=== PATIENT | female | born 1940 | race Caucasian/White ===

== ENCOUNTER 2017-04-04 06:57 | Inpatient (IN) | payer OTHER ==
[2017-03-28 15:43] LABS: BASOPHILS 0.7 %; BASOPHILS ABSOLUTE 0.04 10/3/uL (0.0-0.16); EOSINOPHILS 4.4 %; EOSINOPHILS ABSOLUTE 0.27 10/3/uL (0.0-0.53); HEMOGLOBIN 12.5 g/dL (12.0-16.0); LYMPHOCYTES ABSOLUTE 1.28 10/3/uL (0.67-4.30); MANUAL DIFF NO %; MEAN CORPUS HGB CONC 34.7 g/dL (32.0-36.0); MEAN CORPUSCULAR HEMOGLOB 32.5 pg (26.0-34.0); MEAN CORPUSCULAR VOLUME 93.5 fL (80-100); MEAN PLATELET VOLUME 10.7 fL (9.2-13.0); MONOCYTES 7.2 %; MONOCYTES ABSOLUTE 0.44 10/3/uL (0.21-1.20); NEUTROPHILS 66.7 %; NEUTROPHILS ABSOLUTE 4.07 10/3/uL (2.02-8.40); PLATELET COUNT 215 10/3/uL (150-400); RED CELL COUNT 3.85 10/6/uL (4.0-5.6); WHITE BLOOD CELLS 6.1 10/3/uL (4.5-10.5)
[2017-03-28 15:50] LABS: CALCIUM, SERUM 9.4 MG/DL (8.5-10.4); CHLORIDE, SERUM 103 MMOL/L (96-112); CO2 (CARBON DIOXIDE) 30 MMOL/L (24-34); POTASSIUM, SERUM 4.9 MMOL/L (3.5-5.3); SODIUM, SERUM 138 MMOL/L (135-148)
[2017-03-28 15:55] LABS: BUN (BLOOD UREA NITROGEN) 43 MG/DL (6-23); CREATININE 3.74 MG/DL (0.55-1.02); GFR AFRICAN AMERICAN 13 ML/MIN (>=60); GFR NON AFRICAN AMERICAN 11 ML/MIN (>=60); GLUCOSE, SERUM 86 MG/DL (60-99)
[2017-03-28 16:07] LABS: ASCORBIC ACID (UR NOT ORDER) NEG (NEG); BILIRUBIN, URINE NEGATIVE (NEG); KETONE, URINE NEGATIVE (NEG); LEUKOCYTE ESTERASE(NOT OR NEG (NEG); WBC (NOT ORDERED) (RFLEX) 1 (0-5)
--- NOTE | ~2017-04-04 | HP ---
History And Physical [address] [address] NAME: DARREN VLEAZQUEZ : 42 STATUS : DIS IN PAT#: [id number] AGE: 76 ADM/REG DATE : 04/04/17 MR#: [id number] REPORT SERV DATE: 04/09/17 DICTATED BY: DENA ADAM DATE: 04/09/17 REPORT STATUS : Draft TRANSCRIBED BY: KAMRON DATE: 04/09/17 DATE OF ADMISSION: 04/04/2017 HISTORY: Ms. Velazquez underwent a TURBT on Friday, the . She had acute kidney insufficiency at that time and Nephrology was consulted. Over the weekend, she had a duplex scan of her renal arteries and was found to have no flow to her right kidney. She is currently off the floor for a right renal artery stent with Vascular Surgery. From the computer records, she is afebrile and her blood pressure was last 150/67 with a pulse of 64. She has been making about 2 L of urine a day. Her creatinine was down to 3.76 today from 4.49. Her white count was 6.8 with a hemoglobin of 10.9. IMPRESSION: 1. Bladder mass. 2. Left ureteral mass. 3. Right renal arterial blockage. 4. Acute kidney insufficiency. PLAN: 1. No acute urologic issues at this time. 2. Hopefully, we can get her catheter out and safely home once she is stable from a nephrology standpoint. ANU/KAMRON Dena Adam M.D. / [id number] CC: Tejal Phillips
--- NOTE | ~2017-04-04 | DS ---
Discharge Summary [address] [place]. [address] NAME: DARREN VELAZQUEZ : 42 STATUS : DIS IN PAT#: [id number] AGE: 77 ADM/REG DATE : 04/04/17 MR#: [id number] REPORT SERV DATE: 06/05/17 DICTATED BY: DENA ADAM DATE: 06/04/17 REPORT STATUS : Draft TRANSCRIBED BY: MODValentin DATE: 06/04/17 Data Collection from hospitalization DISCHARGE DIAGNOSES: 1. Bladder mass. 2. Left ureteral mass. 3. Elevated creatinine. 4. Hematuria. 5. Diagnosis of transitional cell carcinoma of the bladder. 6. 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 7. Hypertension. 8. Acute kidney insufficiency. 9. Tobacco use. CONSULTATIONS: 1. Kameron Pierce M.D. 2. Robbi Izquierdo M.D. PROCEDURES PERFORMED: 1. Cystoscopy bilateral retrograde pyelogram, transurethral resection of the bladder tumor of less than 2 cm and placement of a Ponce catheter on 04/04/2017. 2. Aortogram with right renal arteriogram, right renal artery stent on 04/07/2017. 3. Duplex renal arterial/venous study on 04/05/2017. 4. Carotid blood flow study on 04/05/2017. PATHOLOGY: Bladder tissue (TURP) - low-grade papillary urothelial carcinoma - noninvasive. MEDICATIONS: Norvasc 10 mg every morning, aspirin 325 mg daily, Lipitor 40 mg every evening, vitamin D3 1000 units daily, Plavix 75 mg daily, folic acid 1 mg daily, Lasix 40 mg daily, hydralazine 100 mg twice a day, Cozaar 50 mg every morning, Lopressor one and half tablets twice a day, Zofran 4 mg every six hours as needed, and Pyridium 100 mg three times a day. CONDITION AT DISCHARGE: Stable. DISPOSITION: The patient was discharged home on a low-sodium, low-cholesterol, cardiac diet with activities as instructed. She would follow up Dr. Robbi Izquierdo on 04/28/[address] Sachi Herrera on 04/28/2017. She would follow up with Dr. Dena Adam as instructed in four to six weeks following discharge. HOSPITAL COURSE: This is a 76-year-old female who presented for workup of hematuria and urinary tract infection. She was found to have a mass exiting the left ureteral orifice and surrounding her left ureteral orifice. Upper tract imaging showed known atrophic left kidney. She had no evidence of hydroureteronephrosis of either kidney. Since we scheduled this procedure, her creatinine had increased from her baseline of the high 1s up to 4.2 on the day of admission. She denied any symptoms. She said she was voiding without difficulty. Treatment options were discussed and it was elected to proceed with surgical intervention. She was admitted to the hospital at this time for further evaluation and treatment. Discharge Summary [facility] [address]. [address] NAME: DARREN VELAZQUEZ : 42 STATUS : DIS IN [facility]#: [id number] AGE: 77 ADM/REG DATE : 04/04/17 MR#: [id number] REPORT SERV DATE: 06/05/17 DICTATED BY: DENA ADAM DATE: 06/04/17 REPORT STATUS : Draft TRANSCRIBED BY: KAMRON DATE: 06/04/17 Upon admission, she was taken to the operating room where she underwent the above-mentioned procedure. She tolerated this well, and there were no complications. She was seen in consultation by Dr. Kameron Pierce. He had been asked for assistance with management of acute on chronic kidney failure. Creatinine level was 4.26. She had no signs of obstruction on the right per retrograde pyelogram. She has no history of nonsteroidal anti- inflammatory use and no IV contrast. It was suspected that her problem was primarily the MURIEL agent that was added to her regimen in the recent past. She was felt to have acute kidney injury. Her baseline creatinine is 1.5 to 1.7. Hydralazine was increased. Her ARB was stopped. She had been started on Cozaar. Hypertension is quite malignant. We were going to rule out renal artery stenosis on the remaining kidney. IV fluids were provided. The following day, the patient underwent duplex renal arterial/venous study and carotid blood flow study. She had some mild nausea. Diuretic challenge was being performed. She did have some shortness of breath. On 04/06/2017, she still had some shortness of breath. She was found to have no flow into the right kidney. The patient has renal artery stenosis. Her urine with morales colored. She had a progressive rise in her creatinine. It was now 4.49. She was seen by Dr. Robbi Izquierdo. The patient had worsening renal failure and a single kidney. She has renal artery stenosis. Based on this, it was felt that she would benefit from renal artery arteriogram and possible stent placement. This was discussed in detail with the patient and she agreed to proceed. On 04/07/2017, she was taken to the operating room by Dr. Robbi Izquierdo where she underwent the above-mentioned procedure. She tolerated this well, and there were no complications. Ponce catheter was removed. On 04/08/2017, she had no new complaints. Creatinine level was now 2.88. White count was 7.9. Her pathology report had shown low-grade transitional cell carcinoma, which was noninvasive. The nature of superficial bladder cancer was discussed. We also discussed with her that she had residual tumor in the left ureter that could not be reached with this resection. It was discussed with her that she would need further treatment of the tumor in the left ureter. We discussed the plan which had been to treat this with left nephroureterectomy since her left kidney was nonfunctioning, however, the need for right renal artery stent and Plavix had changed that plan. She would not be a good candidate for that surgery due to her need for Plavix at this time. She stated her understanding. She was told that once she was given time to heal from the TURBT that we may be able to safely pass a ureteral scope up her distal ureter and treat the remaining tumor with the laser. She said that she may be interested in pursuing this. Discharge planning was performed. On 04/09/2017, blood pressure was under very good control. She was voiding okay. Creatinine level was 2.05. She denied any gross hematuria. She was wanting to go home. Discharge instructions were given. Due to her improved and stable condition, she was discharged home with the above- stated instructions. Information collected by: Claudia oMore I submit the above information as my discharge summary. HONEY/KAMRON Dena Adam M.D. Discharge Summary [address] [address] NAME: DARREN VELAZQUEZ : 42 STATUS : DIS IN PAT#: [id number] AGE: 77 ADM/REG DATE : 04/04/17 MR#: [id number] REPORT SERV DATE: 06/05/17 DICTATED BY: DENA ADAM DATE: 06/04/17 REPORT STATUS : Draft TRANSCRIBED BY: MODL DATE: 06/04/17 / [id number] CC: Tejal Phillips M.D. Charles Scott Joels, M.D.
--- NOTE | ~2017-04-04 | OP ---
Record Of Operation [facility] [address] [place]. [address] NAME: DARREN VELAZQUEZ : 42 STATUS : ADM IN PAT#: [id number] AGE: 76 ADM/REG DATE : 04/04/17 MR#: [id number] REPORT SERV DATE: 04/08/17 DICTATED BY: ROBBI IZQUIERDO DATE: 04/07/17 REPORT STATUS : Draft TRANSCRIBED BY: MODL DATE: 04/07/17 DATE OF PROCEDURE: 04/07/2017 PREOPERATIVE DIAGNOSIS: Renal artery stenosis, single kidney, and renal failure. POSTOPERATIVE DIAGNOSIS: Renal artery stenosis, single kidney, and renal failure. PROCEDURE: 1. Aortogram with right renal arteriogram. 2. Right renal artery stent. SURGEON: Robbi Izquierdo M.D. ANESTHESIA: Local with sedation. COMPLICATIONS: None. ESTIMATED BLOOD LOSS: Minimal. CONTRAST: 8 mL. HISTORY: The patient is a 76-year-old female, with worsening renal failure, single kidney, and renal artery stenosis. Based on this, it was felt she would benefit from renal artery arteriogram and possible stent placement. This was discussed in detail with the patient. She expressed understanding and desired to proceed. DESCRIPTION OF PROCEDURE: The patient was taken to the operating room and placed in the supine position. She was given IV sedation without complication. Both groins were prepped and draped in sterile fashion. Ultrasound was used to identify the common femoral artery on the right. 1% lidocaine was infiltrated in the skin and subcutaneous tissues. Under ultrasound guidance, an 18-gauge needle was placed in the common femoral artery. Wire was passed into aorta, which was confirmed with fluoroscopy. The needle was removed. A 5- Sami sheath placed. UF catheter was passed over the wire into the aorta. Aortogram shows a patent aorta, patent celiac artery, and branches. The renal artery was not seen. Additional images were performed and eventually using an SHK catheter, the origin the right renal artery was seen, with stenosis at the renal artery origin, and patent renal artery beyond that area. Wire was placed. The sheath was exchanged for 6-Sami torque guide and with the help of a Kyree catheter, a Glidewire was used to access the right renal artery. Select arteriogram was performed, which shows a patent renal artery beyond the origin. The patient was given 4000 units of heparin intravenously. An 0.018 wire was placed. A 4 x 20 balloon was used to angioplasty the renal artery origin. The sheath was then able to be passed into the renal artery origin. A 6 x 16 balloon expandable iCAST covered stent was then placed at the renal origin and the stent pulled back, arteriogram showed this to be in good position, and the stent was deployed without difficulty. Post arteriogram shows a widely patent stent with prompt flow. This was felt to be an excellent result. The sheath was removed. The access was closed with StarClose device without difficulty. The patient Record Of [address] [address] NAME: DARREN VELAZQUEZ : 42 STATUS : ADM IN [facility]#: [id number] AGE: 76 ADM/REG DATE : 04/04/17 MR#: [id number] REPORT SERV DATE: 04/08/17 DICTATED BY: ROBBI IZQUIERDO DATE: 04/07/17 REPORT STATUS : Draft TRANSCRIBED BY: KAMRON DATE: 04/07/17 tolerated well and she was taken to the recovery room in stable condition. SCOTT/KAMRON Robbi Izquierdo M.D. / [id number] CC: Dena Adam M.D. [facility]
--- NOTE | ~2017-04-04 | CN ---
Consultation Report [facility] [address] [place]. [address] NAME: DARREN VELAZQUEZ : 42 STATUS : ADM IN PAT#: [id number] AGE: 76 ADM/REG DATE : 04/04/17 MR#: [id number] REPORT SERV DATE: 04/04/17 DICTATED BY: KAMERON ZHU DATE: 04/04/17 REPORT STATUS : Draft TRANSCRIBED BY: MODL DATE: 04/04/17 NEPHROLOGY CONSULTATION DATE OF CONSULTATION: HISTORY OF PRESENT ILLNESS: A 76-year-old white female, patient of Dr. Dena Adam, admitted for cystoscopy and resection of her left ureteral tumor. These have been done and has had some mitomycin infusion in her bladder postop and is being admitted to the floor now. I was consulted for assistance with management of acute on chronic kidney failure. She had been followed in my office by Dr. Sachi Herrera through November of this year, at which point she decided she was inconvenient by having to come to see him and requested that primary care doctor follow her only. Dr. Mccormick has followed her and has followed up on recommendations by Dr. Herrera for evaluation by Urology for hematuria and found the bladder tumor. She has significant history of hypertension, longstanding; trophic left kidney; hyperlipidemia; cataract surgery x2 in 2014; 2, para 2, abortus 0; and CKD stage 3, creatinine baseline 1.7, which has been stable for several years and the last time checked was 11/23/2016, at which point she was placed on Cozaar and her kidney function has increased, creatinine on 03/28 was 3.7, creatinine today was 4.26. She has no signs of obstruction on the right per a retrograde pyelogram by Dr. Adam in the OR. She has no history of nonsteroidal anti-inflammatory use, no IV contrast, and suspect her problem is primarily the ARB agent that was added to her regimen in the recent past on the patient with significant severe hypertensive nephrosclerosis. No biopsy done. FAMILY HISTORY: Positive for coronary artery disease, and atherosclerotic cardiovascular disease. SOCIAL HISTORY: Continues to smoke. . No alcohol. No drugs. ALLERGIES: TO NO KNOWN MEDICATIONS. HOME MEDICATIONS: Listed as amlodipine 10 mg daily; aspirin 325 daily; atorvastatin 40 mg a daily; vitamin D3, 1000 units daily; folic acid 1 mg tablet daily; furosemide 40 mg daily; hydralazine 100 mg twice a day; losartan 50 mg tab daily; and metoprolol tartrate 50 mg b.i.d. REVIEW OF SYSTEMS: No new medications, except for the losartan that was started in November. No nonsteroidals. Has been remarkably asymptomatic and was surprised when she was told she had kidney failure because she has had no new symptoms. No fever, chills, or dysuria. No shortness of breath. No significant more edema than usual. Has some chronic edema long-term. Denies hematuria as most of this has been microscopic. PHYSICAL EXAMINATION: VITAL SIGNS: Blood pressure 138/64, heart rate of 55, respirations 16, temperature 97 Consultation Report [id number] [facility] [place]. [address] NAME: DARREN VELAZQUEZ : 44 STATUS : ADM IN [facility]#: [id number] AGE: 76 ADM/REG DATE : 04/04/17 MR#: [id number] REPORT SERV DATE: 04/04/17 DICTATED BY: KAMERON ZHU DATE: 04/04/17 REPORT STATUS : Draft TRANSCRIBED BY: MODL DATE: 04/04/17 degrees, and 97% saturated on 1 L by nasal cannula. GENERAL: Alert and cooperative, in no acute distress. Took all the medications this morning. No new symptoms. HEENT: On bilateral nasal cannula. IV shows in her left hand capped. NECK: She has murmurs bilaterally, either carotid bruits or transmitted murmurs from the heart, suspect transmitted murmurs. We will get ultrasound of her carotids. CHEST: Clear. CARDIOVASCULAR: Grade 3/6 systolic ejection murmur, transmitted to the carotids. ABDOMEN: Soft and benign. Bowel sounds are present. Ponce in. EXTREMITIES: She has sequential compression devices on bilaterally, but no significant edema. NEUROLOGIC: Nonfocal. Oriented x3. Cooperative. LABORATORY DATA: Shows sodium 140, potassium 5.0, chloride 107, CO2 of 29 with a BUN of 45, creatinine 4.26, blood sugar 100 today. Creatinine was 3.74 on 03/28, prior to that was 1.7. White count was 6.1, hemoglobin 12, hematocrit 36, platelet count 212 on 03/28, none repeated today. Urinalysis was clear on 03/28. ASSESSMENT: 1. Acute kidney injury. Baseline creatinine 1.5 to 1.7 through November, at which point she was started on Cozaar. Creatinine is as above, currently 4.26. Suspect ARB is the main culprit, we will stop. Increase hydralazine to 100 mg t.i.d. Nonfunctional left kidney, hypertension poorly controlled, but no hydronephrosis in remaining functional right kidney. No nonsteroidal use or contrast use in the recent past. 2. Bladder cancer obstructing left kidney, trophic left kidney, and residual tumor left in left ureter is unable to resect. May well need a left nephrectomy in the future with complete ureter resection also. We will defer to Dr. Adam after pathology returns. 3. Hypertension, quite malignant. Rule out renal artery stenosis on remaining kidney. 4. Tobacco use disorder. 5. Hematuria. Recent resection of bladder cancer is the most likely cause. Dr. Adam following. 6. Anemia, was not anemic in November. PLAN: Stop the ARB. IV fluids. Follow with you. Thank you for consultation. YOMAIRA/KAMRON Kameron Zhu M.D. Consultation Report [address] [address] NAME: DARREN VELAZQUEZ : 42 STATUS : ADM IN [facility]#: [id number] AGE: 76 ADM/REG DATE : 04/04/17 MR#: [id number] REPORT SERV DATE: 04/04/17 DICTATED BY: KAMERON ZHU DATE: 04/04/17 REPORT STATUS : Draft TRANSCRIBED BY: MODL DATE: 04/04/17 / [id number] CC: Tejal Phillips Ralph Edward II
--- NOTE | ~2017-04-04 | HP ---
History And Physical [address] [facility] [place]. [address] NAME: DARREN VELAZQUEZ : 42 STATUS : DIS IN PAT#: [id number] AGE: 76 ADM/REG DATE : 04/04/17 MR#: [id number] REPORT SERV DATE: 04/09/17 DICTATED BY: DENA ADAM DATE: 04/09/17 REPORT STATUS : Draft TRANSCRIBED BY: KAMRON DATE: 04/09/17 DATE OF ADMISSION: 04/04/2017 HOSPITAL FOLLOWUP VISIT NOTE HISTORY: The patient is status post right renal artery stent yesterday evening. She is surprised at how much urine she has made today. PHYSICAL EXAMINATION: VITAL SIGNS: Afebrile. Blood pressure has been elevated. Currently, 161/68, pulse of 98, respirations 22. She has had 2337 mL in and 3375 mL out. GENERAL: She is in no acute distress. NEUROLOGIC: Alert and oriented x3. PSYCHIATRIC: Appropriate. GENITOURINARY: She has a large amount of yellow urine in her catheter bag. LABORATORY STUDIES: Her creatinine is 2.88 with a BUN of 40, potassium of 4, white count of 7.9. Pathology report has returned. This shows a low-grade transitional cell carcinoma, noninvasive. Dr. Caro has already reviewed this with her. I reviewed this with her as well. We discussed the nature of superficial bladder cancer. I also discussed with her that she has residual tumor in her left ureter that I could not reach with this resection. I discussed with her that she will need further treatment of the tumor in her left ureter. I did discuss with her that the plan had been to treat this with a left nephroureterectomy since her left kidney is nonfunctioning. However, the need for a right renal artery stent and Plavix has changed that plan. She would not be a good candidate for that surgery due to her need for Plavix at this time. She states understanding. I did tell her that once we give her time to heal from her TURBT, I may safely be able to pass a ureteroscope up her distal ureter and treat that remaining tumor with a laser. She states she may be interested in pursuing this. IMPRESSION: 1. Transitional cell carcinoma of the bladder, resected and treated with mitomycin. 2. Transitional cell carcinoma of the left ureter, residual tumor remains. PLAN: 1. Dr. Caro is working on her hypertension this evening. 2. We will discontinue her Ponce catheter. 3. Hopefully, she can go home tomorrow if stable and cleared by Nephrology. 4. We will discuss again the plan for potential ureteroscopy and treatment of her tumor with a laser tomorrow. ANU/KAMRON History And Physical [address] [address] NAME: DARREN VELAZQUEZ : 44 STATUS : DIS IN PAT#: [id number] AGE: 76 ADM/REG DATE : 04/04/17 MR#: [id number] REPORT SERV DATE: 04/09/17 DICTATED BY: DEAN ADAM DATE: 04/09/17 REPORT STATUS : Draft TRANSCRIBED BY: KAMRON DATE: 04/09/17 Dena Adam M.D. / [id number] CC: Tejal Phillips
--- NOTE | ~2017-04-04 | HP ---
History And Physical [address] [address] NAME: DARREN CORRALES : 44 STATUS : DIS IN PAT#: [id number] AGE: 76 ADM/REG DATE : 04/04/17 MR#: [id number] REPORT SERV DATE: 04/09/17 DICTATED BY: DENA ADAM DATE: 04/09/17 REPORT STATUS : Draft TRANSCRIBED BY: MODValentin DATE: 04/09/17 DATE OF ADMISSION: 04/04/2017 FOLLOWUP HOSPITAL NOTE HISTORY: The patient is voiding well without difficulty. Denies gross hematuria. She is ready to go home. PHYSICAL EXAMINATION: VITAL SIGNS: She is afebrile. Her blood pressure is 108/71 with a pulse of 95 and respirations of 16. She had 971 mL in yesterday and 2850 mL out. GENERAL: She is in no acute distress. NEUROLOGIC: Alert and oriented x3. PSYCHIATRIC: Appropriate. ABDOMEN: Benign. LABORATORY STUDIES: Creatinine is down to 2.05, BUN of 29, potassium of 3.7. White blood cell count of 7.9 with a hemoglobin of 11.2 and platelets of 146. IMPRESSION: 1. Transitional cell carcinoma of the bladder. 2. Transitional cell carcinoma of the left ureter. 3. Tight stenosis of the right renal artery. 4. Acute kidney insufficiency. 5. Hypertension. PLAN: 1. Dr. Caro believes that she is stable to go home today. I am in agreement. 2. He has written orders for discharge including plans for followup with Dr. Herrera as well as Dr. Izquierdo. Prescriptions are on the chart. 3. Ms. Corrales and I have discussed further treatment options for her left ureteral remaining tumor burden yesterday. We touched on this again today. The plan originally was for her to undergo a left nephroureterectomy to treat her remaining tumor. However, since that time, she has had to have stenting of her right renal artery and start on Plavix. This will not be a safe surgery for her until her Plavix can be safely held. For that reason, we will plan to give her four-to-six weeks to heal from her TURBT and return to the operating room for ureteroscopy. The plan will be cystoscopy, left retrograde pyelogram, left ureteroscopy, laser ablation of tumor, placement of left ureteral stent. Risks and benefits of this procedure have been explained in detail to the patient including, but not limited to, bleeding, infection, damage to adjacent structures, need for additional procedures, need for stent removal in the future, possible need for Ponce catheter placement. She has stated understanding and is willing to proceed. 4. My surgery center administrator will call her within the next week or two to plan a date and time for the above-stated procedure. 5. We will discharge her home today. History And Physical [id number] [facility] [address] [address]. [address] NAME: DARREN CORRALES : 44 STATUS : DIS IN PAT#: [id number] AGE: 76 ADM/REG DATE : 04/04/17 MR#: [id number] REPORT SERV DATE: 04/09/17 DICTATED BY: DENA ADAM DATE: 04/09/17 REPORT STATUS : Draft TRANSCRIBED BY: KAMRON DATE: 04/09/17 ANU/KAMRON Dena Adam M.D. / [id number] CC: Tejal Phillips
--- NOTE | ~2017-04-04 | OP ---
Record Of Operation [facility] [address] [place]. [address] NAME: DARREN VELAZQUEZ : 44 STATUS : ADM IN PAT#: [id number] AGE: 76 ADM/REG DATE : 04/04/17 MR#: [id number] REPORT SERV DATE: 04/04/17 DICTATED BY: DENA ADAM DATE: 04/04/17 REPORT STATUS : Draft TRANSCRIBED BY: MODL DATE: 04/04/17 DATE OF PROCEDURE: 04/04/2017 PREOPERATIVE DIAGNOSES: Bladder mass, left ureteral mass, elevated creatinine, and hematuria. POSTOPERATIVE DIAGNOSIS: Bladder mass, left ureteral mass, elevated creatinine, and hematuria. 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 ANESTHESIA: General. SPECIMENS: Bladder mass. ESTIMATED BLOOD LOSS: Less than 20 mL. DRAINS: A 16-Latvian Ponce catheter to bag drainage. COMPLICATIONS: None. CULTURES: None. DISPOSITION: Extubated to recovery room. HISTORY: A 76-year-old woman who presented to [facility] for workup of hematuria and UTIs. She was found to have a mass exiting her left ureteral orifice and surrounding her left ureteral orifice. Upper tract imaging showed a known atrophic left kidney. She had no evidence of hydroureteronephrosis. Since we have scheduled this procedure, her creatinine has increased from her baseline of the high 1s to 4.2 today. The patient denies any symptoms. She states she is voiding without difficulty. She presents today for the above-stated procedure. PROCEDURE IN DETAIL: After consent was obtained, the patient was taken to the operating room and placed on the operative table in a supine position. General anesthetic was induced. The patient was then placed in dorsal lithotomy position. Her perineum was prepped and draped in the usual sterile fashion. Examination under anesthesia reveals vaginal atrophy. A house painter film on the table shows no evidence of abnormal calcifications along the lines of the kidneys or ureters. Cystourethroscopy was performed with a 30 and 70-degree lens. Both ureteral orifices were seen. A tumor was seen exiting her left ureteral orifice. Her right ureteral orifice was seen effluxing concentrated urine. A right retrograde pyelogram was performed and this showed a normal caliber ureter and collecting system. Once the open- ended stent was removed, this quickly drained all of the contrast. We then switched over to the resectoscope. Her left ureteral orifice and mass were resected down as deep as we could go without perforating the bladder. There was still papillary mass seen exiting the ureter at that time. The Ellik was used to evacuate all of the tumor chips. A wire was then Record Of Operation [address] [address] NAME: DARREN VELAZQUEZ : 44 STATUS : ADM IN PAT#: [id number] AGE: 76 ADM/REG DATE : 04/04/17 MR#: [id number] REPORT SERV DATE: 04/04/17 DICTATED BY: DENA DAAM DATE: 04/04/17 REPORT STATUS : Draft TRANSCRIBED BY: KAMRON DATE: 04/04/17 passed up the ureter short ways and then the open-ended was passed over the wire. A retrograde pyelogram was then performed, which showed some bubbles in the mid ureter, but no masses were noted. Her ureter did appear to be of normal caliber without significant hydronephrosis. Once the open-ended was removed, she did have drainage of contrast, which was slightly bloody in nature. We switched back to the resectoscope and the resected area was then cauterized leaving the ureteral orifice uncauterized. This was seen to be effluxing a small amount of x-ray dye once we were finished. The right ureteral orifice was also effluxing urine once we were finished. There was no evidence of any active bleeding or retained tumor chips in the bladder. The bladder was left full. The scope and sheath were removed. A 16-Latvian Ponce catheter was passed into the bladder and 10 mL was placed in the balloon. This was seated at the bladder neck. This was placed to bag drainage. The patient was awakened and taken to recovery room in good condition. PLAN: The plan will be to give her mitomycin treatment. We will also keep her overnight for observation due to her acute renal insufficiency. We will consult her chemical packager, Dr. Herrera, for his opinion and treatment of this matter. Hopefully, she can go home tomorrow from his standpoint. We plan on seeing her back in the office in 10-14 days for her pathology results. Dr. Cortez is covering the group this weekend. ANU/BOBL Dena Adam M.D. / [id number] CC: Tejal Phillips
[~2017-04-04 06:57] MED LIST: ASA5GR PO; COZ50 PO; FOLIC PO; HYDRALAZINE100 MG PO; L40 PO; LIPITOR40 PO; LOP50 PO; NORV10 PO; VITAMIN D31000 UNIT PO
[2017-04-04 07:28] LABS: CHLORIDE, SERUM 107 MMOL/L (96-112); SODIUM, SERUM 140 MMOL/L (135-148)
[2017-04-04 07:33] LABS: BUN (BLOOD UREA NITROGEN) 45 MG/DL (6-23); CALCIUM, SERUM 9.2 MG/DL (8.5-10.4); CO2 (CARBON DIOXIDE) 29 MMOL/L (24-34); GFR AFRICAN AMERICAN 11 ML/MIN (>=60); GFR NON AFRICAN AMERICAN 10 ML/MIN (>=60); GLUCOSE, SERUM 100 MG/DL (60-99)
[2017-04-04 07:36] LABS: CREATININE 4.26 MG/DL (0.55-1.02)
[2017-04-05 05:12] LABS: BASOPHILS 0.3 %; BASOPHILS ABSOLUTE 0.02 10/3/uL (0.0-0.16); EOSINOPHILS ABSOLUTE 0.12 10/3/uL (0.0-0.53); HEMOGLOBIN 10.4 g/dL (12.0-16.0); IMMATURE GRANULOCYTES 0.2 %; IMMATURE GRANULOCYTES ABSOLUTE 0.01 10/3/uL (0.0-0.11); LYMPHOCYTES 12.4 %; LYMPHOCYTES ABSOLUTE 0.76 10/3/uL (0.67-4.30); MEAN CORPUS HGB CONC 35.9 g/dL (32.0-36.0); MEAN CORPUSCULAR HEMOGLOB 32.8 pg (26.0-34.0); MEAN CORPUSCULAR VOLUME 91.5 fL (80-100); MEAN PLATELET VOLUME 10.4 fL (9.2-13.0); MONOCYTES 6.1 %; MONOCYTES ABSOLUTE 0.37 10/3/uL (0.21-1.20); NEUTROPHILS ABSOLUTE 4.83 10/3/uL (2.02-8.40); RBC DISTRIBUTION WIDTH 12.8 % (12.0-16.0); RED CELL COUNT 3.17 10/6/uL (4.0-5.6); WHITE BLOOD CELLS 6.1 10/3/uL (4.5-10.5)
[2017-04-05 05:13] LABS: MANUAL DIFF NO %; PLATELET COUNT 140 10/3/uL (150-400)
[2017-04-05 05:26] LABS: ALBUMIN 3.1 G/DL (3.5-5.0); BUN (BLOOD UREA NITROGEN) 48 MG/DL (6-23); CALCIUM, SERUM 8.3 MG/DL (8.5-10.4); CHLORIDE, SERUM 107 MMOL/L (96-112); CO2 (CARBON DIOXIDE) 24 MMOL/L (24-34); CREATININE 4.56 MG/DL (0.55-1.02); GFR AFRICAN AMERICAN 10 ML/MIN (>=60); GFR NON AFRICAN AMERICAN 9 ML/MIN (>=60); GLUCOSE, SERUM 97 MG/DL (60-99); PHOSPHORUS, SERUM 4.5 MG/DL (2.5-4.5); SODIUM, SERUM 139 MMOL/L (135-148)
[2017-04-06 07:07] LABS: BASOPHILS 0.3 %; BASOPHILS ABSOLUTE 0.02 10/3/uL (0.0-0.16); EOSINOPHILS ABSOLUTE 0.23 10/3/uL (0.0-0.53); HEMATOCRIT 30.6 % (36.0-48.0); IMMATURE GRANULOCYTES 0.2 %; IMMATURE GRANULOCYTES ABSOLUTE 0.01 10/3/uL (0.0-0.11); LYMPHOCYTES 13.2 %; LYMPHOCYTES ABSOLUTE 0.76 10/3/uL (0.67-4.30); MEAN CORPUS HGB CONC 35.9 g/dL (32.0-36.0); MEAN CORPUSCULAR HEMOGLOB 32.4 pg (26.0-34.0); MEAN PLATELET VOLUME 10.1 fL (9.2-13.0); MONOCYTES 4.2 %; MONOCYTES ABSOLUTE 0.24 10/3/uL (0.21-1.20); NEUTROPHILS 78.1 %; NEUTROPHILS ABSOLUTE 4.48 10/3/uL (2.02-8.40); PLATELET COUNT 129 10/3/uL (150-400); WHITE BLOOD CELLS 5.7 10/3/uL (4.5-10.5)
[2017-04-06 07:09] LABS: MANUAL DIFF NO %
[2017-04-06 07:13] LABS: ALBUMIN 3.4 G/DL (3.5-5.0); BUN (BLOOD UREA NITROGEN) 46 MG/DL (6-23); CALCIUM, SERUM 8.8 MG/DL (8.5-10.4); CHLORIDE, SERUM 106 MMOL/L (96-112); CO2 (CARBON DIOXIDE) 22 MMOL/L (24-34); CREATININE 4.49 MG/DL (0.55-1.02); GFR AFRICAN AMERICAN 10 ML/MIN (>=60); GFR NON AFRICAN AMERICAN 9 ML/MIN (>=60); GLUCOSE, SERUM 98 MG/DL (60-99); PHOSPHORUS, SERUM 4.5 MG/DL (2.5-4.5); POTASSIUM, SERUM 4.5 MMOL/L (3.5-5.3); SODIUM, SERUM 137 MMOL/L (135-148)
[2017-04-07 06:50] LABS: BASOPHILS 0.3 %; BASOPHILS ABSOLUTE 0.02 10/3/uL (0.0-0.16); EOSINOPHILS ABSOLUTE 0.27 10/3/uL (0.0-0.53); HEMATOCRIT 30.6 % (36.0-48.0); HEMOGLOBIN 10.9 g/dL (12.0-16.0); IMMATURE GRANULOCYTES 0.3 %; IMMATURE GRANULOCYTES ABSOLUTE 0.02 10/3/uL (0.0-0.11); LYMPHOCYTES 10.4 %; LYMPHOCYTES ABSOLUTE 0.71 10/3/uL (0.67-4.30); MANUAL DIFF NO %; MEAN CORPUS HGB CONC 35.6 g/dL (32.0-36.0); MEAN CORPUSCULAR HEMOGLOB 32.6 pg (26.0-34.0); MEAN CORPUSCULAR VOLUME 91.6 fL (80-100); MONOCYTES 6.9 %; MONOCYTES ABSOLUTE 0.47 10/3/uL (0.21-1.20); NEUTROPHILS 78.1 %; NEUTROPHILS ABSOLUTE 5.31 10/3/uL (2.02-8.40); PLATELET COUNT 126 10/3/uL (150-400); RBC DISTRIBUTION WIDTH 12.4 % (12.0-16.0); RED CELL COUNT 3.34 10/6/uL (4.0-5.6); WHITE BLOOD CELLS 6.8 10/3/uL (4.5-10.5)
[2017-04-07 07:04] LABS: ALBUMIN 3.2 G/DL (3.5-5.0); BUN (BLOOD UREA NITROGEN) 44 MG/DL (6-23); CALCIUM, SERUM 8.7 MG/DL (8.5-10.4); CHLORIDE, SERUM 106 MMOL/L (96-112); CO2 (CARBON DIOXIDE) 23 MMOL/L (24-34); GFR AFRICAN AMERICAN 13 ML/MIN (>=60); GFR NON AFRICAN AMERICAN 11 ML/MIN (>=60); GLUCOSE, SERUM 93 MG/DL (60-99); PHOSPHORUS, SERUM 3.9 MG/DL (2.5-4.5); POTASSIUM, SERUM 4.4 MMOL/L (3.5-5.3); SODIUM, SERUM 137 MMOL/L (135-148)
[2017-04-07 07:05] LABS: CREATININE 3.76 MG/DL (0.55-1.02)
[2017-04-08 06:18] LABS: ALBUMIN 3.4 G/DL (3.5-5.0); CALCIUM, SERUM 8.9 MG/DL (8.5-10.4); CHLORIDE, SERUM 107 MMOL/L (96-112); CO2 (CARBON DIOXIDE) 22 MMOL/L (24-34); GLUCOSE, SERUM 100 MG/DL (60-99); SODIUM, SERUM 140 MMOL/L (135-148)
[2017-04-08 06:20] LABS: BUN (BLOOD UREA NITROGEN) 40 MG/DL (6-23); CREATININE 2.88 MG/DL (0.55-1.02); GFR AFRICAN AMERICAN 18 ML/MIN (>=60); GFR NON AFRICAN AMERICAN 15 ML/MIN (>=60); PHOSPHORUS, SERUM 2.9 MG/DL (2.5-4.5)
[2017-04-08 06:31] LABS: BASOPHILS 0.1 %; BASOPHILS ABSOLUTE 0.01 10/3/uL (0.0-0.16); EOSINOPHILS 1.3 %; HEMOGLOBIN 11.2 g/dL (12.0-16.0); IMMATURE GRANULOCYTES 0.3 %; IMMATURE GRANULOCYTES ABSOLUTE 0.02 10/3/uL (0.0-0.11); LYMPHOCYTES 6.6 %; LYMPHOCYTES ABSOLUTE 0.52 10/3/uL (0.67-4.30); MEAN CORPUS HGB CONC 36.1 g/dL (32.0-36.0); MEAN CORPUSCULAR HEMOGLOB 32.7 pg (26.0-34.0); MEAN CORPUSCULAR VOLUME 90.6 fL (80-100); MEAN PLATELET VOLUME 11.2 fL (9.2-13.0); MONOCYTES 5.6 %; MONOCYTES ABSOLUTE 0.44 10/3/uL (0.21-1.20); NEUTROPHILS 86.1 %; NEUTROPHILS ABSOLUTE 6.81 10/3/uL (2.02-8.40); PLATELET COUNT 146 10/3/uL (150-400); RBC DISTRIBUTION WIDTH 12.6 % (12.0-16.0); RED CELL COUNT 3.42 10/6/uL (4.0-5.6); WHITE BLOOD CELLS 7.9 10/3/uL (4.5-10.5)
[2017-04-08 06:32] LABS: MANUAL DIFF NO %
[2017-04-09 04:11] LABS: CALCIUM, SERUM 8.8 MG/DL (8.5-10.4); CHLORIDE, SERUM 107 MMOL/L (96-112); GFR AFRICAN AMERICAN 27 ML/MIN (>=60); GFR NON AFRICAN AMERICAN 23 ML/MIN (>=60); GLUCOSE, SERUM 104 MG/DL (60-99); POTASSIUM, SERUM 3.7 MMOL/L (3.5-5.3); SODIUM, SERUM 141 MMOL/L (135-148)
[2017-04-09 04:12] LABS: BUN (BLOOD UREA NITROGEN) 29 MG/DL (6-23); CO2 (CARBON DIOXIDE) 28 MMOL/L (24-34); CREATININE 2.05 MG/DL (0.55-1.02)
[2017-04-09] MEDS ORDERED: PLAVIX PO (13:24)
[2017-04-09] MEDS ORDERED: PYR100B PO (13:26)
[2017-04-09] MEDS ORDERED: ZOFRAN4 PO (13:27)
[2017-05-14] MEDS ORDERED: VITAMIN B-121000 MC1 SL (18:30)
== END 2017-04-09 15:24 | disposition home or self-care (01) | DRG 668 ==
LOC: SDC 06:57 → 4SO 15:28
PROVIDERS: Internal Medicine Nephrology; Nurse Practitioner; Registered Nurse; Urology
DX: C67.8 Malignant neoplasm of overlapping sites of bladder (principal); N17.0 Acute kidney failure with tubular necrosis; D64.9 Anemia, unspecified; I70.1 Atherosclerosis of renal artery; C66.2 Malignant neoplasm of left ureter; I12.9 Hypertensive chronic kidney disease with stage 1 through stage 4 chronic kidney disease, or unspecified chronic kidney disease; N18.3 Chronic kidney disease, stage 3 (moderate); E78.5 Hyperlipidemia, unspecified; F17.210 Nicotine dependence, cigarettes, uncomplicated; N28.9 Disorder of kidney and ureter, unspecified
CPT/HCPCS: 36251; 37236; 71010; 74420; 80048; 80069; 81001; 83735; 85025; 88305; 93005; 93880; 93975; A9270-GY; C1725; C1758; C1769; C1874; C1893; C1894; J0690; J1205; J2405; J2710; J3010; J9280; Q9967